=== PATIENT | male | born 1960 | race Caucasian/White ===

== ENCOUNTER 2021-09-04 09:27 | Emergency (ER) | payer MEDICARE, MEDICAID ==
[2021-09-04] MEDS ORDERED: Sodium Chloride 0.9% 10 ML Syringe FLUSH PRN (09:36)
[2021-09-04] MEDS: Aspirin 81 MG Tab.Chew PO ONE (09:40)
[2021-09-04 09:54] LABS: CHLORIDE,CL 102 mEq/L (98-106); SODIUM,NA 130 mEq/L (136-145)
[2021-09-04] MEDS: Acetaminophen 500 MG Tab PO ONE (10:27)
[2021-09-04 11:49] VITALS: BP 150/76; PULSE 81
== END 2021-09-04 10:45 | disposition home or self-care (01) ==
LOC: CC.ED 09:27
DX: M94.0 Chondrocostal junction syndrome [Tietze] (principal); E87.1 Hypo-osmolality and hyponatremia; I10 Essential (primary) hypertension; Z79.82 Long term (current) use of aspirin; Z79.899 Other long term (current) drug therapy
CPT/HCPCS: 36415; 71045; 80053; 84484; 85025; 93005; 99285-25; A9270-GY

== ENCOUNTER → 2022-05-06 | Day surgery (SDC) | payer MEDICARE, MEDICAID ==
[~2022-05-06] MED LIST: Flumazenil 0.1 MG/ML 10 ML MDV ONE; Ketamine 200 MG/20 ML MDV ONE; Lactated Ringers 1,000 ML IV SCH; Metoprolol Tartrate 5 MG/5 ML SDV ONE; Midazolam 1 MG/ML 2 ML SDV ONE; Propofol 200 MG/20 ML SDV ONE; fentaNYL 50 MCG/ML SDV ONE
[2022-05-06 12:26] VITALS: BP 107/69; PULSE 70
== END ==
LOC: CC.SDS 10:16
PROVIDERS: ATTEND Family Medicine
DX: Z12.11 Encounter for screening for malignant neoplasm of colon (principal); D12.0 Benign neoplasm of cecum; N40.1 Benign prostatic hyperplasia with lower urinary tract symptoms; R35.1 Nocturia; F32.A Depression, unspecified; I10 Essential (primary) hypertension; E87.6 Hypokalemia; M25.562 Pain in left knee; Z79.82 Long term (current) use of aspirin; Z86.010 Personal history of colon polyps; Z79.899 Other long term (current) drug therapy; Z98.890 Other specified postprocedural states
CPT/HCPCS: 88305; J2250; J2704; J3010; J3490; J7120

== ENCOUNTER 2022-05-19 14:12 | Emergency (ER) | payer MEDICARE, MEDICAID ==
[2022-05-19] MEDS ORDERED: Lidocaine 2% Viscous Solution 15 ML UD PO ONE (14:32)
[2022-05-19] MEDS ORDERED: Aluminum Hydroxide/Magnesium Hydroxide/Simethicone Susp 30 ML Cup PO ONE (14:32)
[2022-05-19] MEDS ORDERED: Morphine 2 MG/ML SYRINGE IVPUSH ONE (15:07)
[2022-06-17 09:33] LABS: CHLORIDE,CL 105 mEq/L (98-106); ESTIMATED GFR 105 mL/min (>=60); PTT,PARTIAL THROMBOPLSTIN TIME 24.5 SEC (20.0-29.0); SODIUM,NA 139 mEq/L (136-145)
== END 2022-05-19 16:10 | disposition home or self-care (01) ==
LOC: CC.ED 14:12
DX: R07.89 Other chest pain (principal); I10 Essential (primary) hypertension; Z20.822 Contact with and (suspected) exposure to COVID-19; Z79.899 Other long term (current) drug therapy
CPT/HCPCS: 36415; 71045; 80053; 82150; 83690; 83735; 84484; 85025; 85610; 85730; 93005; 96374; 99285-25; A9270-GY; J2270; U0002

== ENCOUNTER 2022-05-25 16:10 | Observation (INO) | payer MEDICARE, MEDICAID ==
[2022-05-25] MEDS ORDERED: Sodium Chloride 0.9% 10 ML Syringe FLUSH PRN (16:36)
[2022-05-25] MEDS ORDERED: Iopamidol 755 Mg/ML 100 ML Bottle IVPUSH ONE (16:46)
[2022-05-25 16:47] LABS: CHLORIDE,CL 102 mEq/L (98-106); SODIUM,NA 139 mEq/L (136-145)
[2022-05-25 16:48] LABS: ESTIMATED GFR 101 mL/min (>=60)
[2022-05-25] MEDS: fentaNYL 50 MCG/ML SDV IVPUSH ONE (16:56)
[2022-05-25 16:59] LABS: PTT,PARTIAL THROMBOPLSTIN TIME 25.3 SEC (23.2-32.3)
[2022-05-25] MEDS: Lactated Ringers 1,000 ML IV ONE (17:04)
[2022-05-25] MEDS ORDERED: Piperacillin/Tazobactam 3.375 GM in Sodium Chloride 0.9% 100 ML IV STA (19:05)
[2022-05-25] MEDS ORDERED: Morphine 2 MG/ML SYRINGE ONE (20:12)
[2022-05-25 22:05] VITALS: BP 153/86; PULSE 104
[2022-05-25] MEDS ORDERED: Lactated Ringers 1,000 ML IV ONE (23:45)
[2022-05-26] MEDS ORDERED: Sodium Chloride 0.9% 100 ML AdvBag IV ONE ×3 (08:00→23:55)
[2022-05-26] MEDS ORDERED: Lactated Ringers 1,000 ML IV ONE (08:30)
[2022-05-26] MEDS ORDERED: Ondansetron 4 MG/2 ML SDV IVPUSH ONE (17:50)
[2022-05-27] MEDS ORDERED: Multivitamin Tab PO ONE (08:00)
[2022-05-27] MEDS ORDERED: Cholecalciferol (Vitamin D3) 25 MCG Tab PO ONE (08:00)
[2022-05-27] MEDS ORDERED: Calcium Carbonate/Vitamin D3 1250 MG-5 MCG Tab PO ONE (08:00)
== END 2022-05-27 17:30 | disposition home or self-care (01) ==
LOC: SUPCPDRO 16:10 → CC.ED 16:10 → CC.ZCENSUS 20:00 → UNDOADMOB 22:19
PROVIDERS: ADMIT Nurse Practitioner Family; ATTEND Nurse Practitioner Family
DX: K80.10 Calculus of gallbladder with chronic cholecystitis without obstruction (principal); R07.9 Chest pain, unspecified; R10.11 Right upper quadrant pain; N28.1 Cyst of kidney, acquired; I10 Essential (primary) hypertension; F32.A Depression, unspecified; E87.6 Hypokalemia; Z79.899 Other long term (current) drug therapy
CPT/HCPCS: 36415; 47562; 71045; 74177; 80053; 81001; 83605; 83690; 83735; 84484; 85027; 85610; 85730; 86850; 86900; 86901; 87040; 93005; 96361; 96374; 99285; A9270; J2270; J2405; J2543; J3010; J7120

== ENCOUNTER 2022-07-04 16:41 | Emergency (ER) | payer MEDICARE, MEDICAID ==
[2022-07-04] MEDS ORDERED: Aspirin 81 MG Tab.Chew PO ONE (16:47)
[2022-07-04 17:20] LABS: CHLORIDE,CL 102 mEq/L (98-106); SODIUM,NA 137 mEq/L (136-145)
[2022-07-04 17:21] LABS: ESTIMATED GFR 105 mL/min (>=60)
[2022-07-04] MEDS ORDERED: cloNIDine 0.1 MG Tab PO STA (17:22)
[2022-07-04 18:32] VITALS: PULSE 94
[2022-07-04 18:49] VITALS: BP 146/85
== END 2022-07-04 19:11 | disposition home or self-care (01) ==
LOC: CC.ED 16:41
DX: I10 Essential (primary) hypertension (principal); R07.9 Chest pain, unspecified; R42 Dizziness and giddiness; Z79.899 Other long term (current) drug therapy; Z20.822 Contact with and (suspected) exposure to COVID-19
CPT/HCPCS: 36415; 71045; 80053; 83735; 84484; 85025; 86140; 87804; 93005; 93010; 99284; 99285; A9270-GY; U0002

== ENCOUNTER 2022-07-19 12:00 | Emergency (ER) | payer MEDICARE, MEDICAID ==
[~2022-07-19 12:00] MED LIST changes: -Flumazenil 0.1 MG/ML 10 ML MDV ONE; -Ketamine 200 MG/20 ML MDV ONE; -Lactated Ringers 1,000 ML IV SCH; -Metoprolol Tartrate 5 MG/5 ML SDV ONE; -Midazolam 1 MG/ML 2 ML SDV ONE; -Propofol 200 MG/20 ML SDV ONE; +Sodium Chloride 0.9% 10 ML Syringe FLUSH PRN; -fentaNYL 50 MCG/ML SDV ONE
[2022-07-19 12:20] LABS: PTT,PARTIAL THROMBOPLSTIN TIME 24.7 SEC (23.2-32.3)
[2022-07-19 12:26] LABS: CHLORIDE,CL 106 mEq/L (98-106); SODIUM,NA 144 mEq/L (136-145)
[2022-07-19 12:27] LABS: ESTIMATED GFR 86 mL/min (>=60)
[2022-07-19] MEDS ORDERED: LORazepam 0.5 MG Tab PO ONE (12:31)
[2022-07-19] MEDS ORDERED: Alum Hydrox/Mag Hydrox/Simeth 30 ML, Lidocaine 2% 15 ML PO ONE ×2 (13:09)
[2022-07-19 13:11] VITALS: PULSE 62
[2022-07-19 13:12] VITALS: BP 128/79
== END 2022-07-19 17:43 | disposition home or self-care (01) ==
LOC: CC.ED 12:00
DX: R07.9 Chest pain, unspecified (principal); I10 Essential (primary) hypertension; I44.0 Atrioventricular block, first degree; Z79.899 Other long term (current) drug therapy
CPT/HCPCS: 36415; 71045; 80053; 82150; 83690; 83735; 84484; 85025; 85610; 85730; 99285; A9270; 93010; 99284

== ENCOUNTER 2022-07-25 12:11 | Emergency (ER) | payer MEDICARE, MEDICAID ==
[2022-07-25] MEDS ORDERED: hydrOXYzine HCl 25 MG Tab PO ONE (12:36)
[2022-07-25 12:40] VITALS: BP 137/87; PULSE 64
[2022-07-25 13:24] LABS: CORONAVIRUS COVID-19 NAA NEGATIVE (NEGATIVE); RESPIRATORY SYNCYTIAL VIR NAA NEGATIVE (NEGATIVE)
== END 2022-07-25 13:52 | disposition home or self-care (01) ==
LOC: CC.ED 12:11
DX: F41.9 Anxiety disorder, unspecified (principal); I10 Essential (primary) hypertension; Z79.899 Other long term (current) drug therapy; Z20.822 Contact with and (suspected) exposure to COVID-19
CPT/HCPCS: 0241U; 36415; 80053; 85025; 99284; 99285; A9270-GY

== ENCOUNTER 2022-08-29 07:52 | Emergency (ER) | payer MEDICARE, MEDICAID ==
[2022-08-29] MEDS ORDERED: Albuterol/Ipratropium 3.0-0.5 MG/3 ML Neb Soln NEB ONE (07:57)
[2022-08-29 08:10] VITALS: BP 177/85; PULSE 82
[2022-08-29 08:35] LABS: PTT,PARTIAL THROMBOPLSTIN TIME 24.2 SEC (23.2-32.3)
== END 2022-08-29 09:56 | disposition home or self-care (01) ==
LOC: CC.ED 07:52
DX: R07.9 Chest pain, unspecified (principal); J06.9 Acute upper respiratory infection, unspecified; I10 Essential (primary) hypertension; Z79.899 Other long term (current) drug therapy; Z20.822 Contact with and (suspected) exposure to COVID-19
CPT/HCPCS: 36415; 71046; 80053; 83735; 83880; 84484; 85025; 85379; 85610; 85730; 93005; 94640; 99283; 99285; J7620-GY; U0002

== ENCOUNTER 2022-09-09 11:53 | Emergency (ER) | payer MEDICARE, MEDICAID ==
[2022-09-09 12:27] LABS: CHLORIDE,CL 106 mEq/L (98-106); ESTIMATED GFR 97 mL/min (>=60); SODIUM,NA 144 mEq/L (136-145)
[2022-09-09 12:50] VITALS: BP 156/82; PULSE 65
== END 2022-09-09 13:22 | disposition home or self-care (01) ==
LOC: CC.ED 11:53
DX: I10 Essential (primary) hypertension (principal); F41.9 Anxiety disorder, unspecified; I44.0 Atrioventricular block, first degree; Z79.899 Other long term (current) drug therapy
CPT/HCPCS: 36415; 71046; 80053; 83735; 84484; 85025; 86140; 93005; 93010; 99284; 99285

== ENCOUNTER 2022-10-14 05:29 | Emergency (ER) | payer MEDICARE, MEDICAID ==
[2022-10-14 05:35] VITALS: PULSE 86
[2022-10-14 06:42] VITALS: BP 150/82
== END 2022-10-14 10:15 | disposition home or self-care (01) ==
LOC: CC.ED 05:29
DX: L73.9 Follicular disorder, unspecified (principal); R22.2 Localized swelling, mass and lump, trunk; I10 Essential (primary) hypertension; Z96.651 Presence of right artificial knee joint; Z79.899 Other long term (current) drug therapy
CPT/HCPCS: 76604; 99283; 99284

== ENCOUNTER 2022-12-19 13:15 | Emergency (ER) | payer MEDICARE, MEDICAID ==
[2022-12-19] MEDS ORDERED: cloNIDine 0.1 MG Tab PO STA (13:18)
[2022-12-19 13:29] VITALS: PULSE 88
[2022-12-19 13:34] LABS: BASOPHILS ABSOLUTE AUTO 0.05 10^3/uL (0.00-0.50); BASOPHILS PERCENT AUTO 0.5 % (0-1); EOSINOPHILS ABSOLUTE AUTO 0.09 10^3/uL (0.00-1.50); EOSINOPHILS PERCENT AUTO 0.9 % (0-6); HEMATOCRIT 48.9 % (42.0-52.0); HEMOGLOBIN 16.1 g/dL (14.0-18.0); IMMATURE GRAN ABSOLUTE AUTO 0.01 10^3/uL (0.00-0.49); IMMATURE GRAN PERCENT AUTO 0.1 % (0.0-4.9); LYMPHOCYTES ABSOLUTE AUTO 1.25 10^3/uL (0.60-5.00); LYMPHOCYTES PERCENT AUTO 12.9 % (24-44); MEAN CORPUSCULAR HEMOGLOBIN 29.1 pg (27.0-32.0); MEAN CORPUSCULAR HGB CONC 32.9 g/dL (32.0-36.0); MEAN CORPUSCULAR VOLUME 88.3 fL (83.0-97.0); MONOCYTES ABSOLUTE AUTO 0.67 10^3/uL (0.00-1.50); MONOCYTES PERCENT AUTO 6.9 % (0-10); NEUTROPHILS ABSOLUTE AUTO 7.62 x10^3/uL (1.80-8.00); NEUTROPHILS PERCENT AUTO 78.7 % (41-71); PLATELET COUNT,PLT 232 10^3/uL (150-400); RED BLOOD CELL COUNT 5.54 x10^6/uL (4.50-6.00); WHITE BLOOD CELL COUNT,WBC 9.7 10^3/uL (4.0-11.0)
[2022-12-19 13:53] LABS: ALBUMIN 3.3 g/dL (3.4-5.0); BILIRUBIN TOTAL 0.7 mg/dL (0.0-1.0); CALCIUM 8.8 mg/dL (8.4-10.1); EST CRCL DRUG DOSING (CG) 81.58 mL/min; POTASSIUM,K 4.5 mEq/L (3.5-5.0); PROTEIN TOTAL,TP 6.6 g/dL (6.4-8.2)
[2022-12-19 13:56] VITALS: BP 158/94
== END 2022-12-19 14:17 | disposition home or self-care (01) ==
LOC: CC.ED 13:15
DX: F41.9 Anxiety disorder, unspecified (principal); I10 Essential (primary) hypertension; Z79.899 Other long term (current) drug therapy
CPT/HCPCS: 36415; 80053; 84484; 85025; 93005; 93010; 99284; 99285; A9270-GY

== ENCOUNTER 2023-02-22 11:05 | Emergency (ER) | payer MEDICARE, MEDICAID ==
[2023-02-22 11:32] LABS: APPEARANCE,URINE CLEAR (CLEAR); BILIRUBIN,URINE NEGATIVE (NEGATIVE); COLOR,URINE YELLOW (YELLOW); GLUCOSE,URINE NEGATIVE (NEGATIVE); KETONES,URINE NEGATIVE (NEGATIVE); LEUKOCYTE ESTERASE,URINE NEGATIVE (NEGATIVE); NITRITE,URINE NEGATIVE (NEGATIVE); OCCULT BLOOD,URINE NEGATIVE (NEGATIVE); PH,URINE 7.5 (4.5-8.0); PROTEIN,URINE TRACE mg/dL (NEGATIVE)
[2023-02-22 11:32] LABS: BASOPHILS ABSOLUTE AUTO 0.06 10^3/uL (0.00-0.50); BASOPHILS PERCENT AUTO 0.7 % (0-1); EOSINOPHILS ABSOLUTE AUTO 0.14 10^3/uL (0.00-1.50); EOSINOPHILS PERCENT AUTO 1.5 % (0-6); HEMATOCRIT 49.8 % (42.0-52.0); HEMOGLOBIN 17.1 g/dL (14.0-18.0); IMMATURE GRAN ABSOLUTE AUTO 0.02 10^3/uL (0.00-0.49); IMMATURE GRAN PERCENT AUTO 0.2 % (0.0-4.9); LYMPHOCYTES ABSOLUTE AUTO 1.35 10^3/uL (0.60-5.00); LYMPHOCYTES PERCENT AUTO 14.8 % (24-44); MEAN CORPUSCULAR HEMOGLOBIN 29.3 pg (27.0-32.0); MEAN CORPUSCULAR HGB CONC 34.3 g/dL (32.0-36.0); MEAN CORPUSCULAR VOLUME 85.3 fL (83.0-97.0); MONOCYTES ABSOLUTE AUTO 0.65 10^3/uL (0.00-1.50); MONOCYTES PERCENT AUTO 7.1 % (0-10); NEUTROPHILS ABSOLUTE AUTO 6.93 x10^3/uL (1.80-8.00); NEUTROPHILS PERCENT AUTO 75.7 % (41-71); PLATELET COUNT,PLT 234 10^3/uL (150-400); RED BLOOD CELL COUNT 5.84 x10^6/uL (4.50-6.00); WHITE BLOOD CELL COUNT,WBC 9.2 10^3/uL (4.0-11.0)
[2023-02-22 11:42] LABS: BACTERIA,URINE OCCASIONAL /HPF (NOT SEEN); EPITHELIAL CELLS,URINE MODERATE /HPF (NOT SEEN); MUCUS,URINE MODERATE /HPF (NOT SEEN); RBC,URINE 0-5 /HPF (0-5); WBC,URINE 0-5 /HPF (0-5)
[2023-02-22 11:46] LABS: ALANINE AMINOTRANSFERASE,ALT 26 U/L (12-78); ALBUMIN 3.6 g/dL (3.4-5.0); ALKALINE PHOSPHATASE 71 U/L (46-116); ASPARTATE AMNIOTRANSFERASE,AST 21 U/L (15-37); BILIRUBIN TOTAL 0.7 mg/dL (0.0-1.0); BLOOD UREA NITROGEN,BUN 16 mg/dL (7-18); CALCIUM 8.9 mg/dL (8.4-10.1); CARBON DIOXIDE,CO2 27 mmol/L (21-32); CHLORIDE,CL 104 mEq/L (98-106); CREATININE 0.7 mg/dL (0.7-1.3); EST CRCL DRUG DOSING (CG) 116.54 mL/min; ESTIMATED GFR 104 mL/min (>=60); ETHANOL BLOOD MEDICAL < 3 mg/dL (0-3); GLUCOSE RANDOM 94 mg/dL (75-99); POTASSIUM,K 3.9 mEq/L (3.5-5.0); PROTEIN TOTAL,TP 7.1 g/dL (6.4-8.2); SODIUM,NA 140 mEq/L (136-145)
[2023-02-22 12:04] VITALS: BP 165/98; PULSE 76
[2023-02-22 12:11] LABS: AMPHETAMINES,URINE NEGATIVE (NEGATIVE); BARBITURATES,URINE NEGATIVE (NEGATIVE); BENZODIAZEPINE,URINE NEGATIVE (NEGATIVE); MDMA (ECSTASY), URINE NEGATIVE (NEGATIVE); METHADONE,URINE NEGATIVE (NEGATIVE); METHAMPHETAMINES,URINE NEGATIVE (NEGATIVE); OPIATES,URINE NEGATIVE (NEGATIVE); OXYCODONE,URINE NEGATIVE (NEGATIVE); PHENCYCLIDINE,URINE NEGATIVE (NEGATIVE); TCA,URINE NEGATIVE (NEGATIVE)
== END 2023-02-22 12:55 | disposition home or self-care (01) ==
LOC: SUPCPDRO 11:05 → CC.ED 11:05
DX: R45.851 Suicidal ideations (principal); R00.2 Palpitations; F41.9 Anxiety disorder, unspecified; F32.A Depression, unspecified; I10 Essential (primary) hypertension; Z79.899 Other long term (current) drug therapy
CPT/HCPCS: 36415; 80053; 80305-QW; 80307; 81001; 85025; 99285